=== PATIENT | male | born 1970 | race Caucasian/White ===

== ENCOUNTER 2017-02-14 21:21 | Emergency (ER) | payer BC, OTHER ==
[2017-02-14 21:29] VITALS: BP 112/62
[2017-02-14] MEDS ORDERED: Tetracaine 0.5% OPTH.SOL 4 ML* 1 DROP BTL ONE (21:34)
[2017-02-14] MEDS ORDERED: Fluorescein Sodium TOPICAL* 1 MG TEST ONE (21:34)
[2017-02-14] MEDS ORDERED: BSS OPTH.SOL* BTL ONE (21:34)
[2017-02-14] MEDS ORDERED: Fluorescein Sodium TOPICAL* 1 MG TEST OPHTHALMIC ONE (21:35)
[2017-02-14] MEDS ORDERED: Polymyx/Trimethoprim OPTH* 10 ML BTL LEFT EYE ONE (21:44)
[2017-02-14] MEDS ORDERED: Erythromycin OPTH OINT* APPLIC OINT LEFT EYE ONE (21:46)
--- NOTE | 2017-02-14 21:51 | UC ---
Eye Complaint HPI - HPI Summary HPI Summary: Patient presents with CC of left eye pain. He feels he may have sustained a FB in [place] [facility] on saturday. The eye feels as though he has a FB in the upper eye but has not flushed the eye. - History of Current Complaint Chief Complaint: UCEye Stated Complaint: LEFT EYE Time Seen by Provider: 02/14/17 21:32 - Allergies/Home Medications Allergies/Adverse Reactions: Allergies Allergy/AdvReac Type Severity Reaction Status Date / Time No Known Allergies Allergy Verified 02/14/17 21:29 PMH/Surg Hx/FS Hx/Imm Hx - Surgical History Surgical History: None - Social History Alcohol Use: None Substance Use Type: None Smoking Status (MU): Never Smoked Tobacco Physical Exam Vital Signs: Initial Vital Signs Temp 98.1 F 02/14/17 21:25 Pulse 63 02/14/17 21:25 Resp 16 02/14/17 21:25 BP 112/62 02/14/17 21:25 Pulse Ox 99 02/14/17 21:25 Eye Complaint Course/Dx - Course Course Of Treatment: Patient evaluated for conjunctivitis vs FB vs abrasion vs. keratitis vs ocular trauma or periocular trauma. He feels there is a FB in the eye. After scanning the eye with fluorosceine uptake using tetracaine analgesic , the upper and lower lids retracted to allow for assessment of FB under the eye lids. There does not appear to be an abrasion to the eye no uptake seen, no FB seen. NO obvious perforation with teardrop pupil, vitreous extrusion, or protruding intraocular foreign body. No orbital compartment syndrome, hyphema, subconjunctival hemorrhage, evidence of increased intraorbital pressure or evidence of abrasions. Patient is made aware that provider is unable to see an abrasion on uptake or FB. Will treat if abrasion or FB is missed. Erythromycin ointment. Patient is encouraged to follow up with opthomology TOMORROW. Referral given. Patient agrees to plan and is discharged to home. Discharge - Discharge Plan Condition: Stable Disposition: HOME Prescriptions: Erythromycin OPTH OINT* [Erythromycin 0.5% OPTH OINT*] 1 applic LEFT EYE TID #1 ophth.oint Patient Education Materials: Eye Foreign Body (ED) Referrals: Arti Gaffney MD [Medical Doctor] - No Primary Care Phys,NOPCP [Medical Doctor] - Additional Instructions: Instill ~1 cm ribbon into each lower conjunctival sac and blink several times - do this 6 times daily Attempt to flush out the eye with eye drops Ibuprofen 600mg three times daily for pain Follow up with dr gaffney if symptoms continue
[2017-02-14] MEDS ORDERED: Tetracaine 0.5% OPTH.SOL 4 ML* 1 DROP BTL BOTH EYES SCH (22:00)
== END 2017-02-14 22:01 | disposition home or self-care (01) ==
LOC: UCCORT 21:21
DX: H57.8 Other specified disorders of eye and adnexa (principal)
CPT/HCPCS: 99202; A9270-GY; G0463

== ENCOUNTER 2018-07-19 18:09 | Emergency (ER) | payer BC ==
[2018-07-19 18:36] VITALS: BP 127/72
[2018-07-19] MEDS ORDERED: HYDROcodone/ACETAMIN 5-325 MG* 1 TAB PO ONE (18:59)
[2018-07-19] MEDS ORDERED: Clindamycin CAP* 150 MG PO ONE (19:03)
--- NOTE | 2018-07-19 19:04 | UC ---
[facility] HPI - HPI Summary HPI Summary: Patient developed a bubble over the first molar of the left side of the jaw. today it is painful, sinus pressure under the left eye pain with chewing. - History of Current Complaint Chief Complaint: UCDentalProblem Stated Complaint: DENTAL COMPLAINT Time Seen by Provider: 07/19/18 18:36 Hx Obtained From: Patient Onset/Duration: Sudden Onset, Lasting Days Severity: Severe Pain Intensity: 8 Related History: Swelling - Allergies/Home Medications Allergies/Adverse Reactions: Allergies Allergy/AdvReac Type Severity Reaction Status Date / Time No Known Allergies Allergy Verified 02/14/17 21:29 Home Medications: Home Medications Ibuprofen TAB* [Advil TAB*] 400 mg PO Q6H PRN 07/19/18 [History Confirmed ] PMH/Surg Hx/FS Hx/Imm Hx Previously Healthy: Yes - Surgical History Surgical History: None - Family History Known Family History: Positive: Hypertension - Social History Alcohol Use: None Substance Use Type: None Smoking Status (MU): Never Smoked Tobacco Review of Systems All Other Systems Reviewed And Are Negative: Yes Constitutional: Positive: Negative Skin: Positive: Negative Eyes: Positive: Negative ENT: Positive: Dental Pain, Sinus Pain/Tenderness Respiratory: Positive: Negative Cardiovascular: Positive: Negative Gastrointestinal: Positive: Negative Genitourinary: Positive: Negative Motor: Positive: Negative Neurovascular: Positive: Negative Musculoskeletal: Positive: Negative Neurological: Positive: Negative Psychological: Positive: Negative Is Patient Immunocompromised?: No Physical Exam Triage Information Reviewed: Yes Appearance: Well-Appearing, Pain Distress Vital Signs: Initial Vital Signs Temp 98.5 F 07/19/18 18:32 Pulse 54 07/19/18 18:32 Resp 14 07/19/18 18:32 BP 127/72 07/19/18 18:32 Pulse Ox 98 07/19/18 18:32 Vital Signs Reviewed: Yes Eye Exam: Normal ENT Exam: Normal Dental: Positive: Cervical Lymphadenopathy - swelling up the upper gum line, abcess noted Neck exam: Normal Neck: Positive: Supple, Nontender, No Lymphadenopathy Respiratory Exam: Normal Cardiovascular Exam: Normal Abdominal Exam: Normal Bowel Sounds: Positive: Present Musculoskeletal Exam: Normal Neurological Exam: Normal Psychological Exam: Normal Skin Exam: Normal Dental Complaint Course/Dx - Course Course Of Treatment: hx obtained, exam performed ,meds reviewed, treated for dental abscess. pain meds given. recommend follow up with dentist after the weekend. - Differential Dx/Diagnosis Differential Diagnosis/Dx: Dental Abscess, Dental Caries, Fractured Tooth Provider Diagnosis: Dental abscess Discharge - Sign-Out/Discharge Documenting (check all that apply): Patient Departure All imaging exams completed and their final reports reviewed: No Studies - Discharge Plan Condition: Stable Disposition: HOME Prescriptions: Clindamycin Cap(NF) [Clindamycin Cap 300 mg Cap(NF)] 300 mg PO TID #21 cap Patient Education Materials: Dental Abscess (ED) Referrals: Sixto Rowell MD [Primary Care Provider] - Additional Instructions: 1. take the medication as prescribed. 2. COntinue with ibuprofen 600 mg and tylenol 1000 mg every 6-8 hours for pain 3. Coconut oil gargles multiple times a day followed by salt water gargles. 4. Follow up with the Dentist on Saturday - Billing Disposition and Condition Condition: STABLE Disposition: Home
== END 2018-07-19 19:28 | disposition home or self-care (01) ==
LOC: UCCORT 18:09
DX: K04.7 Periapical abscess without sinus (principal); J34.89 Other specified disorders of nose and nasal sinuses
CPT/HCPCS: 99212; A9270-GY; G0463